=== PATIENT | female | born 1970 | race Caucasian/White ===

== ENCOUNTER 2021-12-04 23:20 | Emergency (ER) | payer MEDICAID ==
[~2021-12-04] VITALS: Ht 160 cm; Wt 90.7 kg
[~2021-12-04 23:20] MED LIST: ALPR0.255 PO; ASPI81TA49 PO; ATOR40TA PO; BUDE10.2; CIPR500T5 PO; ESOM40CA PO; IBUP-1957 PO; LOSA1TAB39 PO; MELO-107 PO; METO50TA16 PO; NEBI5TAB8 PO; NIFE30TA26 PO; NITR0.4T SL; OLME1TAB26 PO; OLME1TAB34 PO; OMEP20CA4 PO; PANT40TA49 PO; ROSU10TA2 PO
--- NOTE | 2021-12-04 23:40 | NUR ---
TO ER BED 10. BIBDAUGHTER. 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 PT IS ALERT AND ORIENTED. RR EVEN AND NON LABORED. CONNECTED TO MONITOR. AWAITING MD NASSAR
--- NOTE | 2021-12-05 00:03 | NUR ---
BLOOD COLLECTED AND SENT TO LAB
[2021-12-05 00:47] LABS: BASOPHILS % (AUTO) 0.5 % (0.0-2.0); EOSINOPHILS % (AUTO) 2.4 % (0.0-6.0); HEMATOCRIT 42 % (33-45); HEMOGLOBIN 13.7 g/dL (11.5-14.8); LYMPHOCYTES # (AUTO) 3.1 K/uL (0.8-4.8); LYMPHOCYTES % (AUTO) 37.2 % (20.0-44.0); MEAN CORPUSCULAR HGB CONC 33 g/dl (31.0-36.0); MEAN CORPUSCULAR VOLUME 84 fL (82-100); MONOCYTES # (AUTO) 0.6 K/uL (0.1-1.30); MONOCYTES % (AUTO) 7.6 % (2.0-12.0); NEUTROPHILS # (AUTO) 4.4 K/uL (1.8-8.9); NEUTROPHILS % (AUTO) 52.3 % (43.0-81.0); PLATELET COUNT (AUTO) 218 K/uL (150-450); RED BLOOD CELL COUNT(AUTO) 4.97 MIL/uL (4.0-5.2); WHITE BLOOD COUNT (AUTO) 8.4 K/uL (4.3-11.0)
[2021-12-05 01:10] LABS: CALCIUM, SERUM 8.8 mg/dL (8.5-10.1); CARBON DIOXIDE 24 mmol/L (21-32); CHLORIDE 102 mmol/L (98-107); CREATININE 1.3 mg/dL (0.6-1.3); POTASSIUM 3.9 mmol/L (3.5-5.1); SODIUM SERUM 137 mmol/L (136-145); UREA NITROGEN, BLOOD 25 mg/dL (7-18)
[2021-12-05 01:19] LABS: GLUCOSE 403 mg/dL (74-106)
[2021-12-05] MEDS ORDERED: INSULIN REGULAR, HUMAN 100 UNIT/ML 10 ML VIAL ONE (01:26)
[2021-12-05] MEDS ORDERED: INSULIN LISPRO/ASPART 100 UNIT/ML CARTRIDGE SQ ONE (01:30)
[2021-12-05] MEDS ORDERED: INSULIN LISPRO/ASPART 100 UNIT/ML CARTRIDGE SQ SCH (01:30)
[2021-12-05] MEDS ORDERED: IV NS 0.9% 1,000 ML IV ONE (01:30)
[2021-12-05 03:19] VITALS: BP 165/70
--- NOTE | 2021-12-05 03:19 | NUR ---
Patient discharged to home in stable condition. Written and verbal after care instructions given. Patient verbalizes understanding of instruction.
== END 2021-12-05 03:33 | disposition home or self-care (01) ==
LOC: ER 23:26
DX: E11.65 Type 2 diabetes mellitus with hyperglycemia (principal); R07.89 Other chest pain; I10 Essential (primary) hypertension; J45.909 Unspecified asthma, uncomplicated; E78.5 Hyperlipidemia, unspecified; F41.9 Anxiety disorder, unspecified; E03.9 Hypothyroidism, unspecified; Z88.8 Allergy status to other drugs, medicaments and biological substances; Z79.899 Other long term (current) drug therapy
CPT/HCPCS: 99285; 71045; 93005 ×3; 36415; 96360; 85025; 80048; 84484 ×2; 96372; J1815; J7030